=== PATIENT | male | born 1950 | race Caucasian/White ===

== ENCOUNTER → 2021-01-06 | Outpatient (CLI) | payer MEDICARE ==
[~2021-01-06] MED LIST: LASIX20 MG PO; MOBIC15 MG PO; PRAZOSIN HCL2 MG PO; PROSCAR5 MG PO; ZESTRIL40 MG PO
== END ==
LOC: KOH-I 10:15
DX: R27.0 Ataxia, unspecified (principal); I67.82 Cerebral ischemia
CPT/HCPCS: 70551

== ENCOUNTER → 2021-08-19 | Outpatient (CLI) | payer MEDICARE | LOC: KOH-I 09:30 | DX: Z87.891 Personal history of nicotine dependence (principal) | CPT/HCPCS: 71271 ==